=== PATIENT | male | born 1965 | race African-American/Black ===

== ENCOUNTER → 2019-05-14 | Day surgery (SDC) | payer OTHER ==
[~2019-05-14] MED LIST: COMBIGAN EYE DRO5 ML; DEXAMETHASONE SOD PHOS 10 MG/1 ML VIAL ONE; DEXAMETHASONE SOD PHOS INJ 4 MG/ML VIAL ONE; FENTANYL CITRATE/PF 100MCG/2 ML INJ ONE; GLYCOPYRROLATE INJ 1MG/ 5 ML SYR ONE; KETOROLAC TROMETHAMINE 30 MG/ML VIAL ONE; LIDOCAINE 1% W/EPINEPHRINE 20 ML VIAL ONE; LIDOCAINE HCL 2% LOCAL INJ 5 ML SDV VIAL INJ ONE; LOSARTAN POTAS100 MG PO; MIDAZOLAM HCL 2 MG/2 ML VIAL ONE; NEOSTIGMINE 5 MG/5ML SYR ONE; ONDANSETRON HCL INJ 2MG/ML 2ML 2 MG/ML VIAL ONE; PROPOFOL IV EMULSION 10 MG/ML 20 ML VIAL ONE; ROCURONIUM BROMIDE 10 MG/ML 5ML VIAL ONE; SEVOFLURANE INHAL SOLN 250 ML PEN BTL ONE
--- OUTSIDE RECORDS SUMMARY | 2019-05-14 08:42 | XMS REPORT | Summary of Care ---
Author Author [facility]mology [facility] Organization [facility] [address] [address] Address Unknown Phone Unavailable Encounter HQ Alntr_jaxson(FIN) [id number] Date(s): 10/26/18 - 10/27/18 [facility] [address] [address] 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 2Data migrated from [employer] on 04/25/15. 3Data migrated from [employer] on 01/31/15. Allergies, Adverse Reactions, Alerts Substance Reaction Severity Status NKDA Active Medications No data available for this section Results No data available for this section Immunizations No data available for this section Procedures Procedure Date Related Diagnosis Body Site Status Eye procedure Completed Social History Social History Type Response Smoking Status Never smoker; Exposure to Tobacco Smoke None; Cigarette Smoking Last 365 Days No; Reg Smoking Cessation Counseling No entered on: 10/25/16 Assessment and Plan No data available for this section
--- OUTSIDE RECORDS SUMMARY | 2019-05-14 08:42 | XMS REPORT | Summary of Care ---
Author Author [facility]mology [place] Organization [facility] [place] Address Unknown Phone Unavailable Encounter HQ Alntr_jaxson(FIN) [id number] Date(s): 10/24/18 - 10/25/18 [facility] Ophthalmology [place] [address] [place], [place] [address] [phone] Vital Signs No [...]
--- OUTSIDE RECORDS SUMMARY | 2019-05-14 08:42 | XMS REPORT | Continuity of Care Document ---
Author Author [id number] Organization [employer] [facility] Address Unknown Phone Unavailable Care Team Providers Care Xm1 Tank Driver Name Role Phone [employer] Unavailable Unavailable Problems Problem Status Onset Date Classification Date Reported Comments Source Blind right eye2 Active 04/09/2015 Problem 10/29/2018 Data migrated from [employer] on 04/25/15. [facility] Blind right eye (disorder) Active 04/09/2015 Problem 04/19/2019 Data migrated from [employer] on 04/25/15. Medical Group Open angle primary glaucoma3 Active 09/06/2012 Problem 10/29/2018 Data migrated from [employer] on 01/31/15. Medical Group Primary open angle glaucoma (disorder) Active 09/06/2012 Problem 04/19/2019 Data migrated from [employer] on 01/31/15. Medical Group Benign hypertension1 Active Problem 10/29/2018 Data migrated from [employer] on 01/31/15. Medical Group Benign hypertension (disorder) Active Problem 04/19/2019 Data migrated from [employer] on 01/31/15. Medical Group Medications No Data Provided for This Section Allergies, Adverse Reactions, Alerts Substance Category Reaction Severity Reaction type Status Date Reported Comments Source No Known Medication Allergies Assertion Drug allergy Medical Group Immunizations No Data Provided for This Section Results No Data Provided for This Section Pathology Reports No Data Provided for This Section Diagnostic Reports No Data Provided for This Section Consultation Notes No Data Provided for This Section Discharge Summaries No Data Provided for This Section History and Physicals No Data Provided for This Section Vital Signs No Data Provided for This Section Encounters Location Location Details Encounter Type Encounter Number Reason For Visit Attending Provider ADM Date DC Date Status Source Outpatient [id number] TREY NETTA 04/09/2015 Active [facility] Outpatient [id number] TREY NETTA 09/22/2015 Active [facility] Outpatient [id number] TREY NETTA 03/15/2016 Active [facility] Outpatient [id number] TREY NETTA 09/26/2016 Active [facility] Outpatient [id number] TREY NETTA 10/25/2016 Active [facility] Outpatient [id number] TREY NETTA 02/23/2017 [facility] Ophthalmology [place] Phone Message [id number] 10/24/2018 10/26/2018 Medical Group [facility] Ophthalmology [place] Phone Message [id number] 10/26/2018 10/28/2018 Medical Group [facility] Ophthalmology Luz Maria Phone Message [phone] 04/15/2019 04/17/2019 Medical [facility] Procedures Procedure Code Date Perfomer Comments Source Eye procedure [id number] [facility] Assessment and Plan No Data Provided for This Section Plan of Care No Data Provided for This Section Social History Social History Date Source Social History TypeResponse Smoking Status Never smoker; Exposure to Tobacco Smoke None; Cigarette Smoking Last 365 Days No; Reg Smoking Cessation Counseling No entered on: 10/25/16 10/25/2016 [facility] Family History No Data Provided for This Section Advance Directives No Data Provided for This Section Functional Status No Data Provided for This Section
--- OUTSIDE RECORDS SUMMARY | 2019-05-14 08:42 | XMS REPORT | Summary of Care ---
Author Author [facility] Ophthalmology [facility]hthalmology [place] Address Unknown Phone Unavailable Encounter HQ Alntr_jaxson(FIN) [id number] Date(s): 04/15/19 - 04/16/19 [facility] Ophthalmology [place] [address] 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 2Data migrated from [employer] on 04/25/15. 3Data migrated from [employer] on 01/31/15. Allergies, Adverse Reactions, Alerts No Known Medication Allergies Medications No data available for this section [...]
--- OUTSIDE RECORDS SUMMARY | 2019-05-14 08:42 | XMS REPORT ---
Author [facility] Address Unknown Phone Unavailable Care Team Providers Care Scientific Director Name Role Phone Kirby Atkinson Unavailable Unavailable Zuhair Balderrama Unavailable Unavailable Problems This patient has no known problems. Allergies, Adverse Reactions, Alerts This patient has no known allergies or adverse reactions. Medications This patient has no known medications. Results Test Description Test Time Test Comments Text Results Atomic Results Result Comments CYTOPATH SMEARS W/PREPARATION 2019-04-16 07:33:00 RUN DATE: 04/16/19 [facility]*Live* PAGE 1 RUN TIME: 732 Specimen Inquiry PATIENT: JOSUÉ MARTIN ACCT: [id number] LOC: FNA U: [id number] AGE/SX: 53/M ROOM: RE04/02/19[facility] DR: Kirby Atkinson MD : 1965 BED: DIS: STATUS: REG [facility] TLOC: SPEC : [id number] RECD: 04/02/19 STATUS: PETER CRAFT NUM: [id number] MANNY: 04/02/19 DR: Kirby Atkinson MD ENTERED: 04/02/19 SP TYPE: FN OTHR DR: Shine Atkinson MD ORDERED: [id number]), [id number] CODES: THYROID GLAND, COPIES TO: Shine Atkinson MD [address] [place] [id number] Kirby Atkinson MD [facility] [place] [address] [email or web address] PROCEDURES: [id number](1855) (04/02/19) [id number] () TISSUES: A. THYROID GLAND, NOS - RIGHT B. THYROID GLAND, NOS - LEFT ADDENDUM Addendum 1 Entered: 04/15/19 [facility]/[employer] Lab ID: [id number]: Tomás Hernandez M.D., PhD. RESULTS SUMMARY: Malignancy XpressionNodule Cytopathology [facility] GSC Classifiers Chandler A -- Benign (ROM 4%) NegativeN/A [facility] Thyroid FNA Analysis is used for clinical purposes and clinical correlation of itsresults are recommended. The [facility] laboratory is certified under the Clinical LaboratoryImprovement Amendments of 1988 (CLIA) to perform high-complexity clinical testing. This testhas not been cleared or approved by the FDA. Please see separate report from [facility] for additional details. CONTINUED ON NEXT PAGE RUN DATE: 04/16/19 [facility]*Live* PAGE 2 RUN TIME: 732 Specimen Inquiry SPEC: [id number] PATIENT: JOSUÉ MARTIN [id number] (Rojas chhaya) ADDENDUM (Continued) Addendum Signed (signature on file) Soumya Olvera MD 04/16/19 0733 CLINICAL HISTORY Pre-op Diagnosis: Not stated.Post-op Diagnosis: Not stated. DIAGNOSIS A: Thyroid, right, nodule, ultrasound- guided fine needle aspiration: - Specimen satisfactory for evaluation, but limited by scant cellularity - Atypia of undetermined significance - One pass sent for Afirma testing, addendum report to follow B: Thyroid, left, nodule, ultrasound-guided fine needle aspiration: - Specimen satisfactory for evaluation - Abundant thin and thick colloid present, favor benign CPT 87854 x2, 57352 x2 GROSS DESCRIPTION The case is received in one part, labeled with the patient's name Josué Martin andaccession #[id number] accompanied by a requisition slip labeled with the patient's name and thesame accession number. A: The specimen is from a right thyroid fine needle aspiration performed by Dr. Atkinson,Radiologist. There are five passes and eight smears. (The last pass is reserved forpotential Afirma study). Two cytospins and one cell block are prepared. B: The specimen is from a left thyroid fine needle aspiration performed by Dr. Atkinson,Radiologist. There is one pass and two smears. (Portion of the cystic fluid is reserved forpotential Afirma study). Two cytospins and one cell block are prepared. (YX) MICROSCOPIC DESCRIPTION A: Reviewed are eight smears (4 Diff-Quik stained and 4 Pap stained), two Pap stainedcytospins and one cell block. The smears show few groups of follicular cells, abundanthem osiderin-laden macrophages and background scant amount of thin and thick colloid. Thereis one group of follicular cells that have enlarged nuclei, pale chromatin, small eccentricnucleoli, and rare nuclear grooves. Other groups of follicular cells are bland appearing.The cytospins have an abundance of hemosiderin-laden macrophages and scant thick colloid.The cell block has scant macrophages. B: Reviewed are two smears (1 Diff-Quik stained and 1 Pap stained), two Pap stainedcytospins and one cell block. The smears have abundant thin and thick colloid, macrophagesand rare single follicular cells. The cytospins have macrophages and thick colloid. The cellblock has scant macrophages. Benign/colloid nodule is favored. CONTINUED ON NEXT PAGE RUN DATE: 04/16/19 [facility]*Live* PAGE 3 RUN TIME: 732 Specimen Inquiry SPEC: [id number] PATIENT: JOSUÉ MARTIN [id number] (Continued) - Signed (signature on file) LLOYD CELESTIN MD 04/03/19 1549 END OF REPORT Guided FNA Non Breast 2019-04-02 11:35:00 [place] [address] RADIOLOGY SERVICES REPORT Name: JOSUÉ MARTIN Acct Number: [id number] :1965 Age:53 Sex:M Ord Phys: Kirby Atkinson MD Unit Number: [id number] [facility] Dr: Status: REG [facility] FNA Exam Date: 04/02/19 EXAM DESCRIPTION: US - Guided FNA Non Breast - 04/02/2019 10:45 am CLINICAL HISTORY: BILAT Left thyroid cyst COMPARISON: No comparisons FINDINGS: Preoperative diagnosis: Left thyroid cyst. Post operative diagnosis: Same. Conscious Sedation: None Fluoroscopy time: None Contrast used: None Estimated blood loss: Minimal Specimens:5 mL cyst fluid The left neck was prepped and draped in the usu al sterile fashion. 1% lidocaine was infiltrated into the subcutaneous tissues for local anesthesia. Real time ultrasound scanning of the left neck demonstrated somewhat complex appearing left thyroid cyst. Under ultrasound guidance, using FNA needle, the cyst was aspirated and 5 mL of yellowish cyst fluid was obtained and sent to pathology for evaluation. There were no complications. IMPRESSION: Successful ultrasound-guided left thyroid cyst aspiration. Signed By: Shine Atkinson MD Signed AT: 04/02/19 1136 Guided FNA Non Breast 2019-04-02 11:32:00 [place] [address] RADIOLOGY SERVICES REPORT Name: JOSUÉ MARTIN Acct Number: [id number] :1965 Age:53 Sex:M Ord Phys: Kirby Atkinson MD Unit Number: [id number] [facility] [address]: Status: [facility] FNA Exam Date: 04/02/19 EXAM DESCRIPTION: US - Guided FNA Non Breast - 04/02/2019 11:12 am CLINICAL HISTORY: E04.1 Right thyroid nodule COMPARISON: Guided FNA Non Breast dated 04/02/2019 FINDINGS: Preoperative diagnosis: Right thyroid nodule. Post operative diagnosis: Same. Conscious Sedation: None Fluoroscopy time: None Contrast used: None Estimated blood loss: Minimal Specimens:5 x 25 gauge FNA specimens The right neck was prepped and draped in the usual sterile fashion. 1% lidocaine was infiltrated into the subcutaneous tissues for local anesthesia. Real time ultrasound scanning of the right neck demonstrated a large solid and cystic nodule on the right. Under ultrasound guidance, using FNA needle, 5 specimens were obtained of this lesion and sent to pathology for evaluation. There were no complications. IMPRESSION: Successful ultrasound-guided FNA procedure right thyroid nodule. Signed By: Shine Atkinson MD Signed AT: 04/02/19 1132 Thyroid Para Parotid Gland 2019-02-11 13:20:00 [place] [address] RADIOLOGY SERVICES REPORT Name: JOSUÉ MARTIN Acct Number: [id number] :1965 Age:53 Sex:M Ord Phys: Kirby Atkinson MD Unit Number: [id number] [facility] [address]: Status: REG REF RAD Exam Date: 02/11/19 EXAM DESCRIPTION: US - Thyroid Para Parotid Gland - 02/11/2019 1:09 pm CLINICAL HISTORY: E04.1 COMPARISON: None. FINDINGS: A 6 mm heterogeneous hypoechoic nodule is present midline isthmus. A large heterogeneous mostly solid 3.4 centimeter mass is present in the mid portion right thyroid lobe. An abutting mixed solid and cystic nodule is present 3.0 cm in size. In the superior aspect of the left lobe a 3.2 centimeter cystic nodule is present with thin septations and echogenic debris within the nodule. An 11 millimeter solid nodule is present in the inferior left lobe. Right lobe is approximately 7.3 x 4.5 x 4.0 cm in size. Left lobe is approximately 7.5 x 2.5 x 3.0 cm in size. IMPRESSION: Two large abutting nodules in the right lobe 3.4 cm and 3.0 cm in size. Both have cystic and solid components with the larger nodule mostly solid. Cystic 3.2 cm nodule with septations and echogenic debris within the upper portion of the left lobe. Approximately 6 mm heterogeneous hypoechoic nodule in the isthmus. Thyromegaly. Signed By: Tyrone Collins MD Signed AT: 02/11/19 1321 C Spine Ap/Lat [place] [address] Name: JOSUÉ MARTIN Phys: Johann Balderrama MDFR : 1965 Age: 51 Sex:M Acct: [id number] Loc: RAD Exam Date: 06/19/17 Status: REG REF Radiology Number: Unit Number: [id number] EXAM DESCRIPTION: RAD - C Spine Ap/Lat - 06/19/2017 11:24 am CLINICAL HISTORY: M25.512 COMPARISON: None. FINDINGS: Cervical bodies are normal in height. There is straightening of the usual cervical lordosis. No subluxation abnormality. No fracture or acute bony process seen. C5-6 and C6-7 disc spaces show minimal loss in height. Minimal posterior endplate spurring at C5-6. Facet joint degenerative change is mild. Degenerative changes involve the dens and anterior arch of C1. There is no prevertebral soft tissue thickening or other suspicious soft tissue finding. IMPR ESSION: Cervical spine degenerative changes are present primarily involving C5- 6 and C6-7 disc levels. No acute or destructive finding. Signed By: Tyrone Collins MD Signed AT: 06/19/17 1144
[2019-05-14 14:24] VITALS: BP 127/85
--- NOTE | 2019-05-14 20:42 | Operative Report ---
DATE OF PROCEDURE: 05/14/2019 SURGEON: Kirby Atkinson MD CHIEF COMPLAINT: Right thyroid dominant nodule. POSTOPERATIVE DIAGNOSIS: Right thyroid dominant nodule. OPERATIVE PROCEDURE: Right thyroidectomy with appropriate closure. ANESTHESIA: Dr. Tiwari. INDICATIONS: This 53 years old male has history of thyromegaly. The patient was noted to have multiple nodules in both lobes of the thyroid. The patient has undergone needle aspiration on both thyroid nodule. The left side was cystic and the lesion has decreased in the size. The right side comeback as atypia with uncertain significance. The patient has no dysphagia, odynophagia, or shortness of breath. He has no hoarseness. The patient has no radiation to the head and neck area. Because of the finding, it was decided right thyroidectomy, possible total thyroidectomy and other necessary procedure will be beneficial for him. DESCRIPTION OF PROCEDURE: The patient was taken to the operating room, put under general anesthesia, and endotracheally intubated. The neck was injected with 1% Xylocaine with 1:100,000 epinephrine for hemostasis. The area was prepped and draped in a sterile fashion. Dissection was carried down to the subplatysmal plane. The size of the incision was above 5 cm because of the size of the lesion. The superior and inferior flap were elevated. The strap muscle was identified and this was . The strap muscle on the right side was retracted laterally to the right superior pole parathyroid come into view. Using the Harmonic scalpel, the thyroid gland was dissected from the surrounding soft tissue and the superior pole. Superior pole was dissected and rotated medially and inferiorly. The superior parathyroid gland was identified and not disturbed. The thyroid gland was delivered. The thyroid isthmus was dissected using the Harmonic scalpel. The inferior pole of the thyroid was dissected from the surrounding soft tissue and rotated superiorly and medially. The recurrent laryngeal nerve was identified and not disturbed. The inferior parathyroid was also identified and not disturbed. The thyroid gland was dissected off the Ho's ligament and thyroid gland was delivered and sent for frozen section. The frozen section returned as adenomatous nodule, no malignancy noted. Closure of the area was undertaken. The tracheoesophageal groove was irrigated with copious amount of normal saline. Any bleeding area was controlled using the bipolar cautery. Because no obvious bleeding was noted, it was decided at the time of surgery that the drain would not be indicated. Closure of the wound was undertaken. Strap muscle was advanced in midline and closed with one suture of mattress 3-0 Vicryl suture. The platysmal flap was advanced in the midline and closed on itself using 3-0 Vicryl suture in an interrupted fashion. The skin incision was closed using 4-0 Prolene suture in the interrupted fashion. A pressure dressing was applied. The patient tolerated the above procedure well with estimated blood loss about 10 mL to 15 mL. He was given 20 mg of Decadron intraoperatively. The patient was able to be transferred to recovery room in stable condition. MD AMIE Carney/MODBo /[id number]
--- NOTE | 2019-05-16 10:45 | Pre Op History & Physical ---
DATE OF SURGERY: May 14, 2019. CHIEF COMPLAINT: Right thyroid nodule. HISTORY OF PRESENT ILLNESS: This 53-year-old male was noted to have a swelling in his neck, worse on the left side when he first came to see me in January 2019. The patient has no dysphagia, odynophagia, or shortness of breath. The patient was noted to have a fullness in the left side of the neck about 3 x [address] scan of the neck with contrast was done, that showed the patient has no mass in the neck, but he has a multinodular goiter. Subsequently, an ultrasound of the thyroid was done, which showed the patient has nodules on both the left and the right thyroid, right side mainly solid than left side, it was a cystic lesion. The patient has no family history of thyroid problem. He has no radiation to the head or neck area. The patient was given the option at that time and subsequently underwent fine-needle aspiration under ultrasound guidance on both the right and left nodule. The left side returned as a colloid fluid and the mass that was noted on the left neck disappear after needle aspiration. The right needle aspiration came back as atypia of undetermined significance. REVIEW OF SYSTEMS: System review showed no recent cardiovascular, respiratory, or GI problem. PAST MEDICAL HISTORY: The patient has a history of hypertension. PAST SURGICAL HISTORY: The patient has previous surgery for glaucoma of the right eye. ALLERGIES: HE HAS NO KNOWN ALLERGY TO MEDICATION. MEDICATIONS: He is on losartan, Combigan. 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 FAMILY HISTORY: Noncontributory. PHYSICAL EXAMINATION: VITAL SIGNS: The patient's vital signs were within normal limits. HEENT: Ear exam showed normal tympanic membrane bilaterally. Nasal exam showed deviated nasal septum on the right side about 20%. Nasal endoscopy showed the patient has mobile vocal folds bilaterally with no lesion in the hypopharynx. Oropharynx and oral cavity show 1+ tonsils bilaterally with Mallampati level 3. NECK: Show right neck fullness about 2 x 1 cm. CHEST: Showed good air entry bilaterally. CARDIOVASCULAR: Showed S1, S2. No murmur noted. ASSESSMENT AND PLAN: Mr. Martin has nodules in both thyroid. Needle aspirations showed that the right side has nodules that have atypia with undetermined significance. Suggested treatment is right thyroidectomy, possible total thyroidectomy and other necessary procedure. Complication of procedure includes, but not limited to bleeding, infection, hypothyroidism, hyperthyroidism, hypocalcemia, hypercalcemia, voice change, recurrent laryngeal nerve injury, trouble swallowing, dysphagia, perforation of the esophagus, pneumomediastinum, mediastinitis, wound breakdown, poor cosmetic result, persistent recurrence of the problem. The alternative will be continue observation and repeat needle aspiration of the nodules in the thyroid. The patient and his have elected to undergo surgical procedure. MD AMIE Carney/MARTYL /[id number] cc: Dr. Andrade Richards
== END | disposition home or self-care (01) ==
LOC: OR 08:40
PROVIDERS: ATTEND Otolaryngology Otolaryngology/Facial Plastic Surgery
DX: E04.1 Nontoxic single thyroid nodule (principal); I10 Essential (primary) hypertension; H40.9 Unspecified glaucoma; F17.220 Nicotine dependence, chewing tobacco, uncomplicated
CPT/HCPCS: 60210; 88307; 88331; 93005; J1100; J1885; J2001; J2250; J2405; J2704; J3010; J3490; 88342